=== PATIENT | female | born 1950 | race Caucasian/White ===

== ENCOUNTER → 2020-07-16 08:47 | Outpatient (BNVA) | payer MEDICARE, SELFPAY | PROVIDERS: Family Provider Family Medicine; PCP Nurse Practitioner Family; Visit Provider Nurse Practitioner Family | DX: R30.0 Dysuria (principal); B37.3 Candidiasis of vulva and vagina; Z68.28 Body mass index [BMI] 28.0-28.9, adult | CPT/HCPCS: 81000 ==

== ENCOUNTER → 2020-11-30 09:00 | Outpatient (BNVA) | payer MEDICARE, SELFPAY | PROVIDERS: Family Provider Family Medicine; PCP Nurse Practitioner Family; Visit Provider Nurse Practitioner Family | DX: F43.21 Adjustment disorder with depressed mood (principal); I10 Essential (primary) hypertension; E83.42 Hypomagnesemia; F33.0 Major depressive disorder, recurrent, mild; Z68.28 Body mass index [BMI] 28.0-28.9, adult; B37.3 Candidiasis of vulva and vagina | CPT/HCPCS: 80053; 80061; 83721; 83735; 84439; 84443 ==

== ENCOUNTER → 2021-01-25 08:47 | Outpatient (BNVA) | payer MEDICARE, SELFPAY | PROVIDERS: Family Provider Family Medicine; PCP Nurse Practitioner Family; Visit Provider Nurse Practitioner Family | DX: E03.9 Hypothyroidism, unspecified (principal); E78.1 Pure hyperglyceridemia | CPT/HCPCS: 80053; 80061; 84443 ==

== ENCOUNTER → 2021-02-17 08:44 | Outpatient (BNVA) | payer MEDICARE, SELFPAY | PROVIDERS: Family Provider Family Medicine; PCP Nurse Practitioner Family; Visit Provider Nurse Practitioner Family | DX: R73.9 Hyperglycemia, unspecified (principal); E03.9 Hypothyroidism, unspecified | CPT/HCPCS: 83036; 84443 ==

== ENCOUNTER → 2021-04-16 10:27 | Outpatient (BNVA) | payer MEDICARE, SELFPAY | PROVIDERS: Family Provider Family Medicine; PCP Nurse Practitioner Family; Visit Provider Nurse Practitioner Family | DX: E03.9 Hypothyroidism, unspecified (principal) | CPT/HCPCS: 84443 ==

== ENCOUNTER → 2021-06-15 08:43 | Outpatient (BNVA) | payer MEDICARE, SELFPAY | PROVIDERS: Family Provider Family Medicine; PCP Nurse Practitioner Family; Visit Provider Nurse Practitioner Family | DX: E03.9 Hypothyroidism, unspecified (principal); F43.21 Adjustment disorder with depressed mood | CPT/HCPCS: 84443 ==